=== PATIENT | female | born 1960 | race Caucasian/White ===

== ENCOUNTER 2019-01-30 10:51 | Emergency (ER) | payer SELFPAY ==
--- NOTE | 2019-01-30 11:03 | ED Physician Documentation ---
General Adult - HISTORIAN Historian: patient - HPI Stated Complaint: cough Chief Complaint: Cough/ Upper Respiratory Onset: days ago (4) Timing: still present Severity: mild Further Comments: yes (She states symptoms started Sunday. She has cough - is not sure but might have had a fever and feels achy. No chest pain. no headache. No ear pain. No other complaints. She has taken Tylenol but no other meds due to not having them. "this is why I came here because I dont have meds") - ROS CONST: fever EYES/ENT: none CVS/RESP: none GI/: none MS/SKIN/LYMPH: none NEURO/PSYCH: denies: headache - PAST HX Past History: none Immunizations: UTD Allergies/Adverse Reactions: Allergies Allergy/AdvReac Type Severity Reaction Status Date / Time No Known Allergies Allergy Verified 01/01/16 15:17 Home Medications: Ambulatory Orders Medication Instructions Recorded NK 01/30/19 - SOCIAL HX Smoking History: cigarettes Alcohol Use: none Drug Use: none - FAMILY HX Family History: No - VITAL SIGNS Vital Signs: Vital Signs Temp Pulse Resp BP Pulse Ox 160/84 01/01/16 16:39 - REVIEWED ASSESSMENTS Nursing Assessment Reviewed: Yes Vitals Reviewed: Yes General Adult Physical Exam - PHYSICAL EXAM GENERAL APPEARANCE: no distress EENT: eye inspection normal, ENT inspection normal, pharynx normal, no signs of dehydration NECK: normal inspection RESPIRATORY: no resp distress, wheezes (exp cleared with cough ) CVS: reg rate & rhythm, heart sounds normal ABDOMEN: soft BACK: normal inspection EXTREMITIES: non-tender, normal range of motion, no evidence of injury, no edema NEURO: oriented X3 Discharge Clincal Impression: Viral URI with cough Referrals: Primary Doctor,No [Primary Care Provider] - 2 Days Comments: 1. OTC meds as directed as needed for symptom control -- 2. Tessalon Pearls Take 1 by mouth every 8 hours as needed for cough 3. Follow up with PCP in 2 days 4. Return to ER for any increased concerns STOP SMOKING Condition: Stable Disposition: 01 HOME, SELF-CARE Decision to Admit: NO Date of Decison to Admit: 01/30/19 Decision Time: 11:20
[2019-01-30 11:17] VITALS: BP 155/93
== END 2019-01-30 11:23 | disposition home or self-care (01) ==
LOC: ED 10:51
DX: J06.9 Acute upper respiratory infection, unspecified (principal); F17.210 Nicotine dependence, cigarettes, uncomplicated
CPT/HCPCS: 87400